=== PATIENT | female | born 1965 | race African-American/Black ===

== ENCOUNTER 2020-05-05 18:24 | Inpatient (IN) | payer OTHER ==
[2020-05-05] MEDS ORDERED: Aspirin Chewable 81 MG TAB ONE (18:53)
[2020-05-05] MEDS ORDERED: Dexamethasone 10 MG/ML VIAL ONE (18:53)
--- NOTE | 2020-05-05 21:14 | CT ---
CTA CHEST WITH CONTRAST: 05/05/20 Axial tomograms obtained with multiplanar reconstruction and 3D postprocessing. INDICATIONS: Dyspnea. Possible COVID. FINDINGS: Pulmonary arteries show adequate opacification. No evidence of pulmonary embolus identified. Thoracic aorta unremarkable. Nonspecific mediastinal and hilar adenopathy. Review of the lung [place] reveal extensive patchy ground glass infiltrates throughout all lobes of [place] th lungs consistent with COVID pneumonia. IMPRESSION: 1. No evidence of pulmonary embolus. 2. Patchy diffuse ground glass infiltrates seen throughout both lungs consistent with diffuse CO VID pneumonia. POS: AGW
[2020-05-05] MEDS ORDERED: Acetaminophen 650 MG Suppository PR PRN (21:48)
[2020-05-05] MEDS ORDERED: HYDROcodone/Acetaminophen 5/325 mg Tablet PO PRN ×2 (21:48)
[2020-05-05] MEDS ORDERED: Dextrose 50% Abboject 50 ML SYRINGE SLOW IVP PRN (21:48)
[2020-05-05] MEDS ORDERED: Guaifenesin DM 100-10/5 ML UDCUP PO PRN (21:48)
[2020-05-05] MEDS ORDERED: Insulin Regular 300 UNITS/3 ML VIAL SC PRN (21:48)
[2020-05-05] MEDS ORDERED: Acetaminophen 325 MG TAB PO PRN (21:48)
[2020-05-05] MEDS ORDERED: Ondansetron ODT 4 MG TAB PO PRN (21:48)
[2020-05-05] MEDS ORDERED: Dextrose 5% in Water 1,000 ML IV PRN (21:48)
[2020-05-05] MEDS ORDERED: Ondansetron PF 4 MG/2 ML Vial IVP PRN (21:48)
[2020-05-05] MEDS ORDERED: Sodium Chloride 0.9% 1,000 ML IV SCH (22:00)
--- NOTE | 2020-05-05 22:00 | PDOC.HHP ---
Hospitalist HPI - History of Present Illness sob History of Present Illness: Case of an 54y/o female with pmhx of morbid obese, htn, dm and bronchial asthma who comes to hospital due to sob. patient states she was on her usual state of health until 2-3 days ago when she started with sob cough and loss of taste and smell. these symptoms kept progressing until today when sob became more severe and she decided to come to hospital for evaluation. at arrival RR wsa in the range of 27-28 and 02 sats droped to the 80s on ambulation, patient denies fever chills nausea vomiting chest pain or diaphoresis does refer some occasional diarrhea. of note patient has had contact with brother and sister who both were covid 19 positive. Hospitalist ROS - Review of Systems All other systems reviewed; all pertinent +/- noted in HPI/Subj Hospitalist History - Past Surgical History Other Surgical History: c/s - Family History Family History: reports: cardiac disorder, diabetes mellitus, hypertension - Social History Smoking Status: Never smoker Alcohol: reports: None Drugs: reports: none Living Situation: With Family - Exam General Appearance: NAD, awake alert Eye: PERRL, anicteric sclera ENT: normocephalic atraumatic, no oropharyngeal lesions Neck: supple, symmetric, no JVD, no thyromegaly Heart: RRR, no murmur, no gallops, no rubs Respiratory: no wheezes, no rales, no ronchi, tachypneic Gastrointestinal: soft, non-tender, non-distended, normal bowel sounds Extremities: no cyanosis, no clubbing, no edema Skin: normal turgor, no lesions, no rashes Neurological: cranial nerve grossly intact, normal sensation to touch, no weakness Musculoskeletal: normal tone, normal strength, no muscle wasting Psychiatric: normal affect, normal behavior, A&O x 3 Hospitalist Results - Labs Lab results: Troponin I Less than 0.010 ng/mL (< 0.028) 05/05/20 19:25 Hospitalist H&P A/P - Problem (1) Pneumonia due to COVID-19 virus Code(s): U07.1 - COVID-19; J12.89 - OTHER VIRAL PNEUMONIA Status: Acute (2) Acute respiratory failure with hypoxemia Code(s): J96.01 - ACUTE RESPIRATORY FAILURE WITH HYPOXIA Status: Acute (3) Diabetes Code(s): E11.9 - TYPE 2 DIABETES MELLITUS WITHOUT COMPLICATIONS Status: Acute (4) HTN (hypertension) Code(s): I10 - ESSENTIAL (PRIMARY) HYPERTENSION Status: Acute (5) Bronchial asthma Code(s): J45.909 - UNSPECIFIED ASTHMA, UNCOMPLICATED Status: Acute (6) Morbidly obese Code(s): E66.01 - MORBID (SEVERE) OBESITY DUE TO EXCESS CALORIES Status: Acute - Plan Plan: Case of an 54y/o female with the stated pmhx who presents to hospital with respiratory failure secondary to covid 19 pneumonia respiratory failure - rr in the 28s, 80s 02 sat while ambulating - will provide 02 supplementation - cta negative for PE covid 19 pnemonia - test results pending - cta consistent with covid 19 pattern - started on prophylactic rocephin + azythromicin - dexamethasone 6mg ivd - f/u cultures - f/u inflammation markers - id consulted - ivfs - dvt prophylaxis - isolation protocol dm -acc + ss htn - continue home meds BA - consider albuterol inhaler if needed, no wheezing during physical examination
[2020-05-05 23:19] VITALS: BMI 44.6
[2020-05-05 23:30] LABS: Troponin I Less than 0.010 ng/mL (< 0.028)
[2020-05-06 02:24] LABS: Troponin I Less than 0.010 ng/mL (< 0.028)
[2020-05-06 02:27] LABS: Band 5 % (5-11); Hemoglobin 11.8 g/dL (12.0-16.0); Lymphocytes 9 % (21-51); MDiff Complete? YES; Mean Corpuscular Hemoglobin 27.3 pg (27.0-31.0); Mean Corpuscular Volume 82.7 fL (78.0-98.0); Mean Platelet Volume 10.1 fL (7.4-10.4); Monocytes 3 % (0-10); Neutrophil 83 % (42-75); Platelet Count 188 thou/uL (130-400); RBC Distribution Width 12.5 % (11.5-14.5); Red Blood Cell (RBC) Count 4.32 mill/uL (4.20-5.40); White Blood Cell (WBC) Count 4.1 thou/uL (4.8-10.8)
[2020-05-06 02:56] LABS: ALT (SGPT) 10 U/L (8-55); AST (SGOT) 20 U/L (5-34); Albumin 3.4 g/dL (3.5-5.0); Alkaline Phosphatase 67 U/L (40-110); Anion Gap 14 mmol/L (10-20); BUN (Urea Nitrogen) 15 mg/dL (9.8-20.1); Bilirubin, Total 0.2 mg/dL (0.2-1.2); Calc. Creatinine Clearance 92 mL/min (70-130); Calcium 8.7 mg/dL (7.8-10.44); Carbon Dioxide 23 mmol/L (22-29); Chloride 103 mmol/L (98-107); Estimated GFR-MDRD 59; Globulin 4.6 g/dL (2.4-3.5); Glucose 187 mg/dL (70-105); Potassium 4.3 mmol/L (3.5-5.1); Sodium 136 mmol/L (136-145)
[2020-05-06] MEDS ORDERED: Lisinopril 20 MG TAB PO SCH (09:00)
[2020-05-06] MEDS ORDERED: Enoxaparin Sodium 40 MG/0.4 ML SYRINGE SC SCH (09:00)
[2020-05-06] MEDS ORDERED: Dexamethasone 10 MG/ML VIAL SLOW IVP SCH (09:00)
[2020-05-06 10:28] LABS: SARS-CoV-2 MS2 Positive; SARS-CoV-2 N Gene Positive; SARS-CoV-2 S Gene Positive; SARS-CoV-2 by NAA DETECTED (NotDetected); SARS-CoV-2 orf1ab Positive
[2020-05-06 13:01] VITALS: BP 118/74; TEMP 98.5
[2020-05-06] MEDS ORDERED: cefTRIAXone\\ROCEPHIN 1 GM in Sodium Chloride 0.9% 100 ML IVPB SCH (15:00)
--- NOTE | 2020-05-06 15:11 | PDOC.HOSPP ---
- Subjective Encounter Date: 05/06/20 Encounter Time: 15:01 Subjective: Ms. Gutierrez was seen today in follow-up of cough and COVID positive. She continues to have some cough. She is not requiring supplemental oxygen. - Objective Vital Signs & Weight: Vital Signs (12 hours) Temp Pulse Resp BP Pulse Ox 05/06/20 12:00 98.5 F 81 19 118/74 94 L 05/06/20 11:37 99.5 F 67 18 104/51 L 93 L 05/06/20 08:00 98.1 F 78 19 123/82 94 L 05/06/20 03:30 95 Weight Weight 228 lb 9.592 oz I&O: 05/05/20 05/06/20 05/07/20 06:59 06:59 06:59 Intake Total 1310 Balance 1310 Result Diagrams: 05/06/20 01:45 05/06/20 01:45 Additional Labs: Accuchecks 05/06/20 05/06/20 11:40 05:50 POC Glucose 117 H 167 H Hospitalist ROS - Medication Medications: Active Medications Generic Name Dose Route Start Last Admin Trade Name Freq PRN Reason Stop Dose Admin Dexamethasone 6 mg 05/06/20 09:00 05/06/20 08:08 Dexamethasone 10 Mg/Ml Vial SLOW IVP 6 mg DAILY TIANA Administration Enoxaparin Sodium 40 mg 05/06/20 09:00 05/06/20 08:07 Enoxaparin Sodium 40 Mg/0.4 Ml Syringe SC 40 mg 0900 TIANA Administration Guaifenesin/Dextromethorphan 15 ml 05/05/20 21:48 05/06/20 00:47 Guaifenesin Dm 100-10/5 Ml Udcup PO 15 ml Q4H PRN Administration Cough Sodium Chloride 1,000 mls @ 50 mls/hr 05/05/20 22:00 05/05/20 22:58 Normal Saline 0.9% IV 1,000 mls .Q20H TIANA Administration Lisinopril 40 mg 05/06/20 09:00 05/06/20 08:07 Lisinopril 20 Mg Tab PO 20 mg DAILY TIANA Administration - Exam Eye: PERRL, anicteric sclera Heart: RRR, no murmur, no gallops, no rubs, normal peripheral pulses Respiratory: CTAB, rales (+ faint rales at the bases) Gastrointestinal: soft, non-tender, non-distended, normal bowel sounds, no palpable masses, no hepatomegaly, no splenomegaly Extremities: no cyanosis, no edema Hosp A/P (1) COVID-19 virus infection Code(s): U07.1 - COVID-19 Status: Acute (2) Diabetes Code(s): E11.9 - TYPE 2 DIABETES MELLITUS WITHOUT COMPLICATIONS Status: Chronic (3) HTN (hypertension) Code(s): I10 - ESSENTIAL (PRIMARY) HYPERTENSION Status: Chronic (4) Morbidly obese Code(s): E66.01 - MORBID (SEVERE) OBESITY DUE TO EXCESS CALORIES Status: Chronic (5) Pneumonia due to COVID-19 virus Code(s): U07.1 - COVID-19; J12.89 - OTHER VIRAL PNEUMONIA Status: Acute - Plan * COVID pneumonia- she is doing well. She has not required any supplemental oxygen * DM- stable * Asthma- stable * She can be discharged home on Prednisone * She has a niece who has a pulse ox machine, and she can monitor her oxygen saturations at home. If they fall below 90% then return to the ER. This was discussed with the patient,
[2020-05-06] MEDS ORDERED: Azithromycin 500 MG in Sodium Chloride 0.9% 250 ML 250 ML IVPB SCH (16:00)
--- NOTE | 2020-05-06 19:00 | DIS ---
DATE OF ADMISSION: 05/06/2020 DATE OF DISCHARGE: 05/06/2020 DISCHARGE DISPOSITION: Home. DISCHARGE DIAGNOSES: 1. COVID pneumonia. 2. History of asthma. 3. Morbid obesity with a BMI of 44. 4. Hypertension. 5. Diabetes mellitus type 2. DISCHARGE MEDICATIONS: Include; 1. Prednisone 40 mg p.o. daily for 5 days. 2. Singulair 10 mg p.o. daily. 3. Glipizide 2.5 mg p.o. as directed. 4. Gabapentin 600 mg p.o. t.i.d. 5. Ambien 10 mg p.o. daily. IMAGING DONE DURING THE HOSPITAL STAY: The patient had a CT angiogram of the chest, which was negative for pulmonary embolism. There was evidence of patchy diffuse ground-glass infiltrate seen throughout the lungs consistent with diffuse COVID pneumonia. CODE STATUS: Full code. ALLERGIES: NO KNOWN DRUG ALLERGIES. HOSPITAL COURSE: Ms. Gutierrez is a pleasant 54-year-old female, who came to the emergency room after she had learned family members had tested positive for COVID. She says that about a week ago, she started having symptoms that were like a cough and congestion. Her primary care physician had treated her with a Z-Az and she says that she got somewhat better, but then the night that she came to the ER, she felt like her symptoms had worsen. She never was requiring any oxygen, but given her risk factors of hypertension and diabetes and obesity. She was placed in observation and a CT scan showed findings, which were suspicious for COVID pneumonia. The following day, she still was doing fine on room air and her most notable complaint was the cough, and it is likely that she was further along in her infection, then realized it is suspected that this symptoms that she had suffered a weaker or more ago are likely due to COVID infection and hopefully, she is on the end of the infection. Given that she is not requiring supplemental oxygen, she will be discharged home on several days of steroids and was instructed to self isolate at home and after the isolation, to follow up with her primary care physician and this should be in approximately 2 weeks. Job ID: [id number]
== END 2020-05-06 18:24 | disposition home or self-care (01) | DRG 177 ==
LOC: ERS 18:24 → T4-A 21:20 → OBSVTOIN 05-06 11:48
PROVIDERS: ADMIT Internal Medicine; ATTEND Internal Medicine
PROC: 8E0ZXY6 Isolation (ICD-10-PCS; principal; 2020-05-06)
DX: U07.1 COVID-19 (principal); J12.89 Other viral pneumonia; J96.01 Acute respiratory failure with hypoxia; Z68.41 Body mass index [BMI] 40.0-44.9, adult; I10 Essential (primary) hypertension; E66.01 Morbid (severe) obesity due to excess calories; E11.9 Type 2 diabetes mellitus without complications; J45.909 Unspecified asthma, uncomplicated; M19.90 Unspecified osteoarthritis, unspecified site
CPT/HCPCS: 36415; 36416; 71275; 80053; 83615; 84145; 84484; 85007; 85027; 86140; 87040; 87635; 93005; 94760; 96372; 96374; 96376; G0378; J1100; J1650; J1815; U0003

== ENCOUNTER 2021-04-01 15:07 | Inpatient (IN) | payer OTHER ==
[2021-04-01] MEDS ORDERED: Ketorolac Tromethamine 30 MG/ML VIAL ONE (16:20)
[2021-04-01] MEDS ORDERED: Scopolamine 1.5 mg/72 hour Patch ONE (16:20)
[2021-04-01] MEDS ORDERED: Levofloxacin 500 mg/D5W 100 ml Premix Bag ONE (16:20)
[2021-04-01] MEDS ORDERED: Iothalamate Meglumine 60% 50 ML VIAL FS ONE (16:21)
[2021-04-01] MEDS ORDERED: Bupivacaine PF 0.5% 30 ML VIAL ONE (16:21)
[2021-04-01] MEDS ORDERED: Lidocaine 1% w/Epinephrine 1:100K 20 ML VIAL ONE (16:21)
[2021-04-01] MEDS ORDERED: Fentanyl 250 MCG/5 ML VIAL ONE (16:37)
[2021-04-01] MEDS ORDERED: PHENYLEPHRINE-NS 100 MCG/ML 10 ML SYRINGE ONE (16:52)
[2021-04-01] MEDS ORDERED: Rocuronium Bromide 10 MG/ML (10ML VIAL) ONE (16:52)
[2021-04-01] MEDS ORDERED: Ondansetron PF 4 MG/2 ML Vial ONE (16:52)
[2021-04-01] MEDS ORDERED: PROPOFOL 200 MG/20 ML VIAL ONE (16:52)
[2021-04-01] MEDS ORDERED: ePHEDrine 50 MG/ML VIAL ONE (16:52)
[2021-04-01] MEDS ORDERED: Lidocaine 1% PF 5 ML VIAL ONE (16:52)
[2021-04-01] MEDS ORDERED: Calcium Chloride 1 GM/10 ML Abboject SYRINGE ONE (16:52)
[2021-04-01] MEDS ORDERED: Dexamethasone 20 MG/5 ML VIAL ONE (16:52)
[2021-04-01] MEDS ORDERED: SUGAMMADEX SODIUM 200 MG/2 ML VIAL ONE (18:13)
[2021-04-01] MEDS ORDERED: Dextrose 50% Abboject 50 ML SYRINGE SLOW IVP PRN (18:38)
[2021-04-01] MEDS ORDERED: Ondansetron ODT 4 MG TAB PO PRN (18:38)
[2021-04-01] MEDS ORDERED: Dextrose 5% in Water 1,000 ML IV PRN (18:38)
[2021-04-01] MEDS ORDERED: hydrALAZINE 20 MG/ML VIAL SLOW IVP PRN (18:38)
[2021-04-01] MEDS ORDERED: HumaLOG 300 UNITS/3 ML VIAL SC PRN (18:38)
[2021-04-01] MEDS ORDERED: Ondansetron PF 4 MG/2 ML Vial IVP PRN (18:38)
[2021-04-01] MEDS ORDERED: Morphine 4 MG/ML VIAL SLOW IVP PRN (18:38)
[2021-04-01] MEDS ORDERED: Acetaminophen 500 MG TAB PO PRN (18:41)
[2021-04-01] MEDS ORDERED: Ketorolac Tromethamine 30 MG/ML VIAL IVP PRN (18:41)
[2021-04-01] MEDS ORDERED: Labetalol HCl 100 MG/20 ML VIAL ONE (19:11)
[2021-04-01] MEDS: Gabapentin 300 MG CAP PO SCH (21:44)
[2021-04-01] MEDS: Famotidine/PF 20 mg/2ml Vial SLOW IVP SCH (21:45)
[2021-04-01] MEDS: Famotidine 20 MG TAB PO SCH (21:45)
[2021-04-01] MEDS: Lactated Ringer's 1,000 ML IV SCH (21:46)
[2021-04-01 23:35] VITALS: BMI 48.0
[2021-04-02] MEDS: Lactated Ringer's 1,000 ML IV SCH ×2 (05:41→17:43)
[2021-04-02 07:28] LABS: #Monocytes 0.5 thou/uL (0.11-0.59); #Neutrophils 12.1 thou/uL (1.40-6.50); %Basophils 0.1 % (0.0-1.0); %Eosinophils 0.1 % (0.0-10.0); %Lymphocytes 7.7 % (21.0-51.0); %Monocytes 3.3 % (0.0-10.0); %Neutrophils 88.9 % (42.0-75.0); Hemoglobin 10.9 g/dL (12.0-16.0); Mean Corpuscular HGB CONC 30.6 g/dL (32.0-36.0); Mean Corpuscular Hemoglobin 25.8 pg (27.0-31.0); Mean Platelet Volume 9.5 fL (7.4-10.4); Platelet Count 285 thou/uL (130-400); RBC Distribution Width 12.7 % (11.5-14.5); Red Blood Cell (RBC) Count 4.22 mill/uL (4.20-5.40); White Blood Cell (WBC) Count 13.6 thou/uL (4.8-10.8)
[2021-04-02] MEDS: Mometasone 100 MCG/PUFF (1 INHALER) INH SCH ×2 (08:03→19:05)
[2021-04-02 08:20] LABS: Chloride 106 mmol/L (98-107); Potassium 4.7 mmol/L (3.5-5.1); Sodium 142 mmol/L (136-145)
[2021-04-02 08:21] LABS: Calcium 8.9 mg/dL (7.8-10.44)
[2021-04-02 08:22] LABS: Globulin 3.6 g/dL (2.4-3.5); Protein, Total 6.6 g/dL (6.0-8.3)
[2021-04-02 08:23] LABS: Anion Gap 13 mmol/L (10-20); Bilirubin, Total 0.8 mg/dL (0.2-1.2); Carbon Dioxide 28 mmol/L (22-29)
[2021-04-02 08:24] LABS: Alkaline Phosphatase 198 U/L (40-110)
[2021-04-02 08:25] LABS: Calc. Creatinine Clearance 85 mL/min (70-130)
[2021-04-02 08:26] LABS: BUN (Urea Nitrogen) 20 mg/dL (9.8-20.1)
[2021-04-02 08:27] LABS: ALT (SGPT) 290 U/L (8-55); AST (SGOT) 449 U/L (5-34)
[2021-04-02] MEDS: glipiZIDE 5 MG TAB PO SCH (08:30)
[2021-04-02] MEDS: Gabapentin 300 MG CAP PO SCH ×3 (08:31→20:59)
[2021-04-02] MEDS: predniSONE 20 MG TAB PO SCH (08:31)
[2021-04-02] MEDS: Famotidine 20 MG TAB PO SCH ×2 (08:32→20:59)
[2021-04-02] MEDS: Enoxaparin Sodium 40 MG/0.4 ML SYRINGE SC SCH (08:32)
[2021-04-02] MEDS: Famotidine/PF 20 mg/2ml Vial SLOW IVP SCH ×2 (08:32→22:06)
[2021-04-02] MEDS: Montelukast Sodium 10 mg Tablet PO SCH (08:32)
[2021-04-02 08:35] LABS: Glucose 152 mg/dL (70-105)
[2021-04-02 08:55] LABS: Lipase 1248 U/L (8-78)
[2021-04-02] MEDS ORDERED: Indomethacin 50 MG SUPP ONE (14:29)
[2021-04-02] MEDS ORDERED: Iothalamate Meglumine 60% 50 ML VIAL FS ONE (14:30)
[2021-04-02] MEDS ORDERED: Fentanyl 100 MCG/2 ML VIAL ONE (14:31)
[2021-04-02] MEDS ORDERED: Ketorolac Tromethamine 30 MG/ML VIAL ONE (14:44)
[2021-04-02] MEDS ORDERED: Albuterol Sulfate HFA (OR ONLY) ONE ×2 (14:44→15:05)
[2021-04-02] MEDS ORDERED: Ondansetron PF 4 MG/2 ML Vial ONE (14:44)
[2021-04-02] MEDS ORDERED: Succinylcholine 200 MG/10 ml SYRINGE FS ONE (14:44)
[2021-04-02] MEDS ORDERED: PROPOFOL 200 MG/20 ML VIAL ONE (14:44)
[2021-04-02] MEDS ORDERED: Dexamethasone 20 MG/5 ML VIAL ONE (14:44)
[2021-04-02] MEDS ORDERED: Lidocaine 1% PF 5 ML VIAL ONE (14:44)
[2021-04-02] MEDS ORDERED: Labetalol HCl 100 MG/20 ML VIAL ONE (15:50)
[2021-04-02] MEDS: traMADol HCl 50 MG TAB PO PRN (17:48)
[2021-04-02] MEDS: Zolpidem Tartrate 5 MG TAB PO SCH (20:59)
[2021-04-02] MEDS: Morphine 2 MG/ML VIAL SLOW IVP PRN (21:28)
[2021-04-03] MEDS: Lactated Ringer's 1,000 ML IV SCH ×4 (04:20→19:30)
[2021-04-03] MEDS: Morphine 2 MG/ML VIAL SLOW IVP PRN (05:31)
[2021-04-03 06:39] LABS: AST (SGOT) 118 U/L (5-34); Albumin 2.7 g/dL (3.5-5.0); Anion Gap 13 mmol/L (10-20); Bilirubin, Total 0.3 mg/dL (0.2-1.2); Calc. Creatinine Clearance 88 mL/min (70-130); Calcium 8.1 mg/dL (7.8-10.44); Carbon Dioxide 22 mmol/L (22-29); Chloride 108 mmol/L (98-107); Globulin 3.4 g/dL (2.4-3.5); Glucose 129 mg/dL (70-105); Potassium 4.6 mmol/L (3.5-5.1); Protein, Total 6.1 g/dL (6.0-8.3); Sodium 138 mmol/L (136-145)
[2021-04-03] MEDS: Mometasone 100 MCG/PUFF (1 INHALER) INH SCH ×2 (06:43→19:01)
[2021-04-03 06:50] LABS: ALT (SGPT) 172 U/L (8-55); Alkaline Phosphatase 153 U/L (40-110); BUN (Urea Nitrogen) 24 mg/dL (9.8-20.1); Lipase 163 U/L (8-78)
[2021-04-03 07:04] LABS: #Lymphocytes 1.5 thou/uL (1.20-3.40); #Neutrophils 12.7 thou/uL (1.40-6.50); %Basophils 0.2 % (0.0-1.0); %Eosinophils 0.1 % (0.0-10.0); %Lymphocytes 10.1 % (21.0-51.0); %Monocytes 6.4 % (0.0-10.0); %Neutrophils 83.2 % (42.0-75.0); Hemoglobin 9.1 g/dL (12.0-16.0); Mean Corpuscular HGB CONC 32.4 g/dL (32.0-36.0); Mean Corpuscular Hemoglobin 27.1 pg (27.0-31.0); Mean Corpuscular Volume 83.8 fL (78.0-98.0); Mean Platelet Volume 9.6 fL (7.4-10.4); Platelet Count 232 thou/uL (130-400); RBC Distribution Width 12.6 % (11.5-14.5); Red Blood Cell (RBC) Count 3.36 mill/uL (4.20-5.40); White Blood Cell (WBC) Count 15.3 thou/uL (4.8-10.8)
[2021-04-03] MEDS: Famotidine/PF 20 mg/2ml Vial SLOW IVP SCH ×2 (09:09→19:36)
[2021-04-03] MEDS: Montelukast Sodium 10 mg Tablet PO SCH (09:20)
[2021-04-03] MEDS: Enoxaparin Sodium 40 MG/0.4 ML SYRINGE SC SCH (09:20)
[2021-04-03] MEDS: predniSONE 20 MG TAB PO SCH (09:20)
[2021-04-03] MEDS: Famotidine 20 MG TAB PO SCH ×2 (09:20→21:22)
[2021-04-03] MEDS: Gabapentin 300 MG CAP PO SCH ×3 (09:20→21:21)
[2021-04-03] MEDS: Zolpidem Tartrate 5 MG TAB PO SCH (21:22)
[2021-04-03] MEDS: traMADol HCl 50 MG TAB PO PRN (21:22)
[2021-04-04] MEDS: Lactated Ringer's 1,000 ML IV SCH ×3 (03:19→17:27)
[2021-04-04 06:32] LABS: #Lymphocytes 3.6 thou/uL (1.20-3.40); #Monocytes 1.4 thou/uL (0.11-0.59); #Neutrophils 12.1 thou/uL (1.40-6.50); %Basophils 0.1 % (0.0-1.0); %Eosinophils 0.1 % (0.0-10.0); %Neutrophils 70.8 % (42.0-75.0); Mean Corpuscular HGB CONC 31.7 g/dL (32.0-36.0); Mean Corpuscular Hemoglobin 26.4 pg (27.0-31.0); Mean Corpuscular Volume 83.3 fL (78.0-98.0); Mean Platelet Volume 9.6 fL (7.4-10.4); Platelet Count 235 thou/uL (130-400); RBC Distribution Width 12.6 % (11.5-14.5); Red Blood Cell (RBC) Count 3.42 mill/uL (4.20-5.40); White Blood Cell (WBC) Count 17.1 thou/uL (4.8-10.8)
[2021-04-04] MEDS: Mometasone 100 MCG/PUFF (1 INHALER) INH SCH ×2 (06:46→18:29)
[2021-04-04] MEDS: Enoxaparin Sodium 40 MG/0.4 ML SYRINGE SC SCH (09:44)
[2021-04-04] MEDS: Gabapentin 300 MG CAP PO SCH ×3 (09:45→20:23)
[2021-04-04] MEDS: Montelukast Sodium 10 mg Tablet PO SCH (09:46)
[2021-04-04] MEDS: predniSONE 20 MG TAB PO SCH (09:46)
[2021-04-04] MEDS: Famotidine 20 MG TAB PO SCH ×2 (09:46→20:22)
[2021-04-04] MEDS: Famotidine/PF 20 mg/2ml Vial SLOW IVP SCH ×2 (09:47→21:57)
[2021-04-04 10:42] LABS: ALT (SGPT) 108 U/L (8-55); AST (SGOT) 30 U/L (5-34); Albumin 2.8 g/dL (3.5-5.0); Alkaline Phosphatase 152 U/L (40-110); Anion Gap 8 mmol/L (10-20); BUN (Urea Nitrogen) 20 mg/dL (9.8-20.1); Bilirubin, Total 0.3 mg/dL (0.2-1.2); Calc. Creatinine Clearance 108 mL/min (70-130); Carbon Dioxide 31 mmol/L (22-29); Chloride 108 mmol/L (98-107); Globulin 3.2 g/dL (2.4-3.5); Glucose 104 mg/dL (70-105); Potassium 3.8 mmol/L (3.5-5.1); Sodium 143 mmol/L (136-145)
[2021-04-04] MEDS: Zolpidem Tartrate 5 MG TAB PO SCH (20:24)
[2021-04-04] MEDS: traMADol HCl 50 MG TAB PO PRN (20:24)
[2021-04-05] MEDS: Lactated Ringer's 1,000 ML IV SCH (04:10)
[2021-04-05 06:04] LABS: #Lymphocytes 3.5 thou/uL (1.20-3.40); #Monocytes 1.5 thou/uL (0.11-0.59); #Neutrophils 12.9 thou/uL (1.40-6.50); %Basophils 0.3 % (0.0-1.0); %Eosinophils 0.2 % (0.0-10.0); %Lymphocytes 19.3 % (21.0-51.0); %Monocytes 8.1 % (0.0-10.0); %Neutrophils 72.1 % (42.0-75.0); Hemoglobin 9.3 g/dL (12.0-16.0); Mean Corpuscular HGB CONC 32.3 g/dL (32.0-36.0); Mean Corpuscular Hemoglobin 26.9 pg (27.0-31.0); Mean Corpuscular Volume 83.2 fL (78.0-98.0); Mean Platelet Volume 9.4 fL (7.4-10.4); Platelet Count 254 thou/uL (130-400); RBC Distribution Width 12.6 % (11.5-14.5); Red Blood Cell (RBC) Count 3.45 mill/uL (4.20-5.40); White Blood Cell (WBC) Count 17.9 thou/uL (4.8-10.8)
[2021-04-05 06:25] LABS: Anion Gap 9 mmol/L (10-20); BUN (Urea Nitrogen) 18 mg/dL (9.8-20.1); Calc. Creatinine Clearance 126 mL/min (70-130); Calcium 8.2 mg/dL (7.8-10.44); Carbon Dioxide 29 mmol/L (22-29); Chloride 108 mmol/L (98-107); Glucose 108 mg/dL (70-105); Potassium 3.9 mmol/L (3.5-5.1); Sodium 142 mmol/L (136-145)
[2021-04-05] MEDS: Mometasone 100 MCG/PUFF (1 INHALER) INH SCH (07:51)
[2021-04-05] MEDS: glipiZIDE 5 MG TAB PO SCH (08:56)
[2021-04-05] MEDS: Montelukast Sodium 10 mg Tablet PO SCH (08:56)
[2021-04-05] MEDS: Famotidine 20 MG TAB PO SCH (08:56)
[2021-04-05] MEDS: predniSONE 20 MG TAB PO SCH (08:57)
[2021-04-05] MEDS: Enoxaparin Sodium 40 MG/0.4 ML SYRINGE SC SCH (08:57)
[2021-04-05] MEDS: Gabapentin 300 MG CAP PO SCH ×2 (08:57→14:58)
[2021-04-05] MEDS: Famotidine/PF 20 mg/2ml Vial SLOW IVP SCH (08:58)
[2021-04-05 13:49] VITALS: BP 149/95; TEMP 98.6
[2021-04-05] MEDS ORDERED: Ibuprofen 600 MG TAB PO PRN (14:28)
== END 2021-04-05 17:15 | disposition home or self-care (01) | DRG 417 ==
LOC: SDC 15:07 → SURG B 16:00 → OBSVTOIN 04-02 14:27
PROVIDERS: ADMIT Specialist; ATTEND Specialist
PROC: 0FT44ZZ Resection of Gallbladder, Percutaneous Endoscopic Approach (ICD-10-PCS; principal; 2021-04-01)
PROC: 0F798DZ Dilation of Common Bile Duct with Intraluminal Device, Via Natural or Artificial Opening Endoscopic (ICD-10-PCS; 2021-04-02)
DX: K80.10 Calculus of gallbladder with chronic cholecystitis without obstruction (principal); K85.10 Biliary acute pancreatitis without necrosis or infection; Z68.42 Body mass index [BMI] 45.0-49.9, adult; K91.89 Other postprocedural complications and disorders of digestive system; E66.01 Morbid (severe) obesity due to excess calories; E11.9 Type 2 diabetes mellitus without complications; K76.0 Fatty (change of) liver, not elsewhere classified; I10 Essential (primary) hypertension; E88.81 Metabolic syndrome and other insulin resistance; J45.909 Unspecified asthma, uncomplicated; Y83.8 Other surgical procedures as the cause of abnormal reaction of the patient, or of later complication, without mention of misadventure at the time of the procedure; Z79.899 Other long term (current) drug therapy
CPT/HCPCS: 36415; 36416; 71045; 74018; 74330; 78226; 80048; 80053; 83690; 85025; 88304; 93005; 93010; 96372; 96374; A9537; G0378; J0360; J1100; J1610; J1650; J1885; J1956; J2270; J2405; J2704; J3010; J3490; J7120; J7512; Q9961; S0020

== ENCOUNTER 2021-05-27 12:16 | Outpatient (CLI) | payer OTHER ==
[2021-05-28 12:04] LABS: SARS-CoV-2 PCR by NAA Not Detected (NotDetected)
== END 2021-05-27 12:17 | disposition home or self-care (01) ==
LOC: LABBT 12:16
PROVIDERS: ATTEND Internal Medicine Gastroenterology
DX: Z01.812 Encounter for preprocedural laboratory examination (principal); Z96.89 Presence of other specified functional implants; Z20.822 Contact with and (suspected) exposure to COVID-19
CPT/HCPCS: U0003; U0005

== ENCOUNTER 2021-06-01 08:29 | Day surgery (SDC) | payer OTHER ==
[2021-05-31 10:59] VITALS: BMI 46.8
[2021-06-01] MEDS ORDERED: Iothalamate Meglumine 60% 50 ML VIAL FS ONE (10:52)
[2021-06-01] MEDS ORDERED: SUGAMMADEX SODIUM 200 MG/2 ML VIAL ONE (11:13)
[2021-06-01] MEDS ORDERED: Lidocaine 1% PF 5 ML VIAL ONE (11:31)
[2021-06-01] MEDS ORDERED: Succinylcholine 200 MG/10 ml SYRINGE FS ONE (11:31)
[2021-06-01] MEDS ORDERED: PHENYLEPHRINE-NS 100 MCG/ML 10 ML SYRINGE ONE (11:31)
[2021-06-01] MEDS ORDERED: PROPOFOL 200 MG/20 ML VIAL ONE (11:31)
[2021-06-01] MEDS ORDERED: Ondansetron PF 4 MG/2 ML Vial ONE (11:31)
[2021-06-01] MEDS ORDERED: Rocuronium Bromide 10 MG/ML (10ML VIAL) ONE (11:31)
== END 2021-06-01 13:50 | disposition home or self-care (01) ==
LOC: SDC 08:29
PROVIDERS: ATTEND Internal Medicine Gastroenterology
PROC: 0FPB8DZ Removal of Intraluminal Device from Hepatobiliary Duct, Via Natural or Artificial Opening Endoscopic (ICD-10-PCS; principal; 2021-06-01)
DX: Z46.59 Encounter for fitting and adjustment of other gastrointestinal appliance and device (principal); D57.3 Sickle-cell trait; M19.90 Unspecified osteoarthritis, unspecified site; G25.81 Restless legs syndrome; J45.909 Unspecified asthma, uncomplicated; E11.9 Type 2 diabetes mellitus without complications; I10 Essential (primary) hypertension; E66.9 Obesity, unspecified; Z68.42 Body mass index [BMI] 45.0-49.9, adult; Z79.82 Long term (current) use of aspirin; Z79.84 Long term (current) use of oral hypoglycemic drugs; Z79.899 Other long term (current) drug therapy
CPT/HCPCS: 74330; J2405; J2704; Q9961-U8